=== PATIENT | female | born 1985 | race American Indian/Alaskan Native ===

== ENCOUNTER 2020-04-23 12:32 | Outpatient (CLI) | payer OTHER ==
[2020-04-23 13:49] LABS: Bilirubin,Urine NEG (Negative); Blood,Urine NEG (Negative); Color,Urine Yellow (Yellow); Mucus,Urine 1+ /HPF; Protein,Urine <15 mg/dL mg/dL (Negative); Urobilinogen,Urine < 2.0 mg/dL (<2.0)
[2020-04-23 13:57] LABS: Amphetamine Screen,Urine Negative; Benzodiazepines Screen,Urine Negative; Cannabinoid Screen,Urine Negative; Cocaine Screen,Urine Negative; Methadone Screen,Urine Negative; Opiate Screen,Urine Negative
[2020-04-23] MEDS ORDERED: BUTORPHANOL 2 MG/1 ML INJ IV PRN (14:14)
[2020-04-23] MEDS: LACTATED RINGERS 1,000 ML IV SCH ×2 (14:58→15:06)
[2020-04-23] MEDS ORDERED: AMPICILLIN/NS 2 GM/100 ML 2 GM/100 ML BAG IV ONE (15:00)
[2020-04-23] MEDS ORDERED: TERBUTALINE 1 MG/1 ML INJ ONE (17:27)
[2020-04-23] MEDS ORDERED: TERBUTALINE 1 MG/1 ML INJ SUB-Q ONE (17:28)
[2020-04-23 17:50] VITALS: BP 149/79
== END 2020-04-23 18:16 | disposition home or self-care (01) ==
LOC: TRG 12:32 → APU 12:35 → TRG 18:16
PROVIDERS: ATTEND Obstetrics & Gynecology
DX: O26.892 Other specified pregnancy related conditions, second trimester (principal); R10.30 Lower abdominal pain, unspecified; O47.02 False labor before 37 completed weeks of gestation, second trimester; O09.522 Supervision of elderly multigravida, second trimester; Z3A.22 22 weeks gestation of pregnancy
CPT/HCPCS: 59025; 80307; 81001; 96365; 96366; 96368; 96372; J0290; J0595; J3105; J7120; 96360; 96361